=== PATIENT | female | born 1950 | race Two or more races ===

== ENCOUNTER 2017-05-29 09:02 | Emergency (ER) | payer SELFPAY ==
[2017-05-29 10:07] LABS: ADD MAN DIFF? NO
[2017-05-29 10:14] LABS: BASO # 0.1 x10^3/uL (0.0-0.2); BASO % 1 % (0-3); EOS # 0.4 x10^3/uL (0.0-0.7); EOS % 5 % (0-3); HEMATOCRIT 39.3 % (36.0-47.0); LYMPH # 3.7 x10^3/uL (1.0-4.8); LYMPH % 41 % (24-48); MEAN CORPUSCULAR HEMOGLOBIN 29 pg (25-35); MEAN CORPUSCULAR HGB CONC 33 g/dL (31-37); MEAN CORPUSCULAR VOLUME 88 fL (79-100); MONO # 0.4 x10^3/uL (0.0-1.1); MONO % 5 % (0-9); NEUT # 4.5 x10^3uL (1.8-7.7); NEUT % 50 % (31-73); PLATELET COUNT 328 x10^3/uL (140-400); RED CELL DISTRIBUTION WIDTH 13.6 % (11.5-14.5); WHITE BLOOD COUNT 9.1 x10^3/uL (4.0-11.0)
[2017-05-29 10:28] LABS: ANION GAP 8 (6-14); BLOOD UREA NITROGEN 18 mg/dL (7-20); BUN/CREATININE RATIO 15 (6-20); CALCIUM 9.7 mg/dL (8.5-10.1); CARBON DIOXIDE 27 mmol/L (21-32); CHLORIDE 100 mmol/L (98-107); CREATININE 1.2 mg/dL (0.6-1.0); GFR 45.2; GLUCOSE 171 mg/dL (70-99); POTASSIUM 3.9 mmol/L (3.5-5.1); SODIUM 135 mmol/L (136-145)
[2017-05-29 10:38] LABS: ALBUMIN 3.4 g/dL (3.4-5.0); ALBUMIN/GLOBULIN RATIO 0.5 (1.0-1.7); ALK PHOS 115 U/L (46-116); ALT (SGPT) 19 U/L (14-59); AST (SGOT) 19 U/L (15-37); TOTAL BILIRUBIN 0.4 mg/dL (0.2-1.0); TOTAL PROTEIN 9.6 g/dL (6.4-8.2)
== END 2017-05-29 11:51 | disposition home or self-care (01) ==
LOC: ER 09:02
DX: R21 Rash and other nonspecific skin eruption (principal); J06.9 Acute upper respiratory infection, unspecified; E11.9 Type 2 diabetes mellitus without complications
CPT/HCPCS: 36415; 71046; 80053; 85025; 99285-25

== ENCOUNTER 2019-05-07 10:24 | Emergency (ER) | payer SELFPAY ==
[~2019-05-07] VITALS: Ht 152.4 cm; Wt 72.0 kg
[~2019-05-07 10:24] MED LIST: CEPH-264 PO; MUPI22OI2 TP
[2019-05-07 10:30] VITALS: BP 181/74
--- NOTE | 2019-05-07 12:00 | PHYS DOC ---
Past Medical History Past Medical History: Diabetes-Type II, Hypertension Smoking Status: Never Smoker Alcohol Use: None Drug Use: None Adult General Chief Complaint Chief Complaint: SKIN RASH/ABSCESS HPI HPI Patient is a 68 year old female who presents to the emergency department with complaints of a red itchy rash to her face, abdomen, and back that has had some crusting recently. Patient denies any fever, cough, shortness of breath, sore throat, ear pain, nausea, vomiting, diarrhea, abdominal pain, or wheezing. Patient denies any new medications, detergents, foods, or environmental exposures. She currently denies any pain. Patient states that the rash is the worst on her face and abdomen. Review of Systems Review of Systems Complete ROS is negative unless otherwise noted in HPI. Allergies Allergies Allergies Coded Allergies Type Severity Reaction Last Updated Verified No Known Drug Allergies 05/29/17 No Physical Exam Physical Exam See Above Constitutional: Well developed, well nourished, no acute distress, non-toxic appearance. [] HENT: Normocephalic, atraumatic, bilateral external ears normal, oropharynx moist, no oral exudates, nose normal. [] Eyes: PERRLA, EOMI, conjunctiva normal, no discharge. [] Neck: Normal range of motion, no stridor. [] Cardiovascular:Heart rate regular rhythm Lungs & Thorax: Bilateral breath sounds clear to auscultation [] Abdomen: soft, no tenderness Skin: Warm, dry; erythemic, scaly plaques noted to abdomen, back, face, and scalp, consistent with eczema, some with crusting present concerning for infec colt eczema/impetigo. Extremities: No cyanosis, no clubbing, ROM intact, no edema. [] Neurologic: Alert and oriented X 3, no focal deficits noted. [] Psychologic: Affect normal, judgement normal, mood normal. [] Current Patient Data Vital Signs Vital Signs Date Time Temp Pulse Resp B/P (MAP) Pulse Ox O2 Delivery O2 Flow Rate FiO2 05/07/19 10:30 98.7 65 16 181/74 (109) 97 Room Air 98.7 EKG EKG [] Radiology/Procedures Radiology/Procedures [] Course & Med Decision Making Course & Med Decision Making Pertinent Labs and Imaging studies reviewed. (See chart for details) [] Dragon Disclaimer Dragon Disclaimer This electronic medical record was generated, in whole or in part, using a voice recognition dictation system. Departure Departure Impression: Primary Impression: Eczema Additional Impression: Infectious eczematoid dermatitis Disposition: 01 HOME, SELF-CARE Condition: STABLE Referrals: NO PCP (PCP) Patient Instructions: Eczema Additional Instructions: Fill the prescriptions and use as directed. DO NOT apply hydrocortisone cream to you face, only apply to abdomen, back, and extremities. Follow up with your primary care doctor this week, you may need to see a circuit recorder. Return to the ER if symptoms worsen. Scripts Cephalexin (CEPHALEXIN) 500 Mg Capsule 1 CAP PO TID for 7 Days, #21 CAP 0 Refills Prov: LAI LAU APRN 05/07/19 Hydrocortisone Valerate (HYDROCORTISONE VALERATE) 15 Gm Cream..g. 1 ELZBIETA TP BID PRN for ITCHING for 7 Days, #30 GM 0 Refills 0.5% hydrocortisone cream Prov: LAI LAU APRN 05/07/19 Problem Qualifiers Primary Impression: Eczema Eczema type: unspecified Qualified Codes: L30.9 - Dermatitis, unspecified LAI LAU APRN May 07, 2019 12:00
[2019-05-07] MEDS ORDERED: CEPH500C PO (12:39)
[2019-05-07] MEDS ORDERED: HYDR15CR20 TP (12:39)
== END 2019-05-07 12:45 | disposition home or self-care (01) ==
LOC: ER 10:24
DX: L30.3 Infective dermatitis (principal); R21 Rash and other nonspecific skin eruption; I10 Essential (primary) hypertension; E11.9 Type 2 diabetes mellitus without complications
CPT/HCPCS: 99283